=== PATIENT | female | born 1985 | race African-American/Black ===

== ENCOUNTER 2018-11-19 17:46 | Emergency (ER) | payer MEDICAID ==
[~2018-11-19] VITALS: Ht 162.6 cm; Wt 93.0 kg
[2018-11-19 22:30] VITALS: BP 115/72
[2018-11-19] MEDS ORDERED: IBUPROFEN 400MG TABLET PO ONE (22:30)
== END 2018-11-19 22:31 | disposition home or self-care (01) ==
LOC: ER 21:53
DX: S01.551A Open bite of lip, initial encounter (principal); X58.XXXA Exposure to other specified factors, initial encounter; Y93.89 Activity, other specified; Y92.89 Other specified places as the place of occurrence of the external cause; Y99.8 Other external cause status
CPT/HCPCS: 99282

== ENCOUNTER 2019-08-02 09:57 | Inpatient (IN) | payer MEDICAID ==
[~2019-08-02] VITALS: Ht 162.6 cm; Wt 113.4 kg
[2019-08-02] MEDS: DEXT 5%/LR + PITOCIN 20UNITS/L 1,000 ML IV SCH (09:59)
[2019-08-02] MEDS ORDERED: CARBOPROST TROMETHAMINE 250 MCG/ML AMPUL IM PRN (10:00)
[2019-08-02] MEDS ORDERED: METHYLERGONOVINE MALEATE 0.2 MG/ML IM PRN (10:00)
[2019-08-02] MEDS ORDERED: MISOPROSTOL 100MCG TABLET VG PRN (10:00)
[2019-08-02] MEDS ORDERED: PNV1TABL76 PO (10:01)
[2019-08-02 10:22] LABS: CLARITY URINE CLOUDY (CLEAR); COLOR URINE YELLOW (YELLOW); KETONES URINE NEGATIVE (NEGATIVE); LEUKOCYTE ESTERASE URINE TRACE (NEGATIVE); NITRITE URINE NEGATIVE (NEGATIVE); OCCULT BLOOD URINE NEGATIVE (NEGATIVE); PH URINE 5.5 (4.5-8.0); PROTEIN URINE TRACE (NEGATIVE); SPECIFIC GRAVITY URINE 1.025 (1.005-1.030); UROBILINOGEN URINE 0.2 E.U./dL (0.2-1.0)
[2019-08-02] MEDS: LACTATED RINGERS 1,000 ML IV SCH (10:28)
[2019-08-02 10:31] LABS: BASOPHILS % 0.6 % (0.0-2.0); EOSINOPHILS % 0.7 % (0.0-5.0); HEMATOCRIT. 40.2 % (36.0-48.0); HEMOGLOBIN. 13.2 g/dL (12.0-16.0); LYMPHOCYTES % 19.7 % (20.0-50.0); MEAN CORPUSCULAR HEMOGLOBIN 28.4 pg (28.0-32.0); MEAN CORPUSCULAR VOLUME 86.4 fL (81.0-99.0); MEAN PLATELET VOLUME 9.1 fl (7.4-10.4); MONOCYTES % 7.5 % (2.0-8.0); NEUTROPHILS % 71.5 % (40.0-76.0); PLATELET 347 x1000/uL (130-400); RED BLOOD CELL COUNT 4.66 mill/uL (4.2-5.4); RED CELL DISTRIBUTION WIDTH 15.8 % (11.6-14.6)
[2019-08-02 10:41] LABS: *AMPHETAMINES SCREEN URINE NEGATIVE (NEGATIVE); *BARBITURATES SCREEN URINE NEGATIVE (NEGATIVE)
[2019-08-02 10:42] LABS: *BENZODIAZEPINES SCREEN URINE NEGATIVE (NEGATIVE); *COCAINE SCREEN URINE NEGATIVE (NEGATIVE); CANNABINOID URINE SCREEN NEGATIVE (NEGATIVE); METHADONE URINE SCREEN NEGATIVE (NEGATIVE); OPIATES URINE SCREEN NEGATIVE (NEGATIVE); PHENCYCLIDINE URINE SCREEN NEGATIVE (NEGATIVE)
[2019-08-02 10:44] LABS: INR 0.9; PARTIAL THROMBOPLASTIN TIME 25.9 sec (23.4-31.0); PROTHROMBIN TIME 9.6 sec (9.6-11.0)
[2019-08-02] MEDS ORDERED: MORPHINE SULFATE/PF 1MG/ML 10ML AMP ONE (10:57)
[2019-08-02] MEDS ORDERED: METOCLOPRAMIDE HCL 10MG/2ML VIAL ONE (10:57)
[2019-08-02] MEDS ORDERED: FENTANYL CITRATE/PF 50MCG/ML 2ML VIAL ONE (10:57)
[2019-08-02] MEDS ORDERED: PHENYLEPHRINE HCL 10 MG/ML 1ML (IV VIAL) IV ONE (10:57)
[2019-08-02] MEDS ORDERED: EPHEDRINE SULFATE 50MG/ML VIAL ONE (10:57)
[2019-08-02] MEDS ORDERED: ONDANSETRON HCL 4MG/2ML INJ ONE (10:57)
[2019-08-02] MEDS ORDERED: GLYCOPYRROLATE 0.2 MG/ML 2ML VIAL ONE (10:57)
[2019-08-02] MEDS ORDERED: CEFAZOLIN SODIUM 1000MG/VIAL ONE (10:58)
[2019-08-02] MEDS ORDERED: OXYTOCIN 10 UNITS/ML 1ML ONE ×2 (10:58→12:21)
[2019-08-02] MEDS ORDERED: CITRIC ACID/SODIUM CITRATE SOLN 30ML UDC PO NR (11:00)
[2019-08-02] MEDS ORDERED: SODIUM CHLORIDE 0.9% 10ML VIAL ONE (11:05)
[2019-08-02 12:25] LABS: HEPATITIS B SURFACE ANTIGEN NEGATIVE
[2019-08-02] MEDS ORDERED: DIPHENHYDRAMINE 50MG/ML VIAL ONE (12:32)
[2019-08-02] MEDS ORDERED: KETOROLAC 60MG/2ML VIAL IM ONE (12:41)
[2019-08-02] MEDS ORDERED: HYDROCODONE/ACETAMINOPHEN 5/325MG TABLET PO PRN (13:00)
[2019-08-02] MEDS ORDERED: ONDANSETRON HCL 4MG/2ML INJ IV PRN (13:00)
[2019-08-02] MEDS ORDERED: LANOLIN OINT 7GM TUBE TOP PRN (13:00)
[2019-08-02] MEDS ORDERED: RHO(D) IMMUNE GLOBULIN 300 MCG/SYR IM PRN (13:00)
[2019-08-02] MEDS ORDERED: BISACODYL 10MG SUPP PR PRN (13:00)
[2019-08-02] MEDS ORDERED: DIPHENHYDRAMINE 50MG/ML VIAL IV PRN (14:15)
[2019-08-02] MEDS ORDERED: NALOXONE HCL 0.4 MG/ML 1ML VIAL IV PRN (14:15)
[2019-08-02] MEDS ORDERED: BUTORPHANOL TARTRATE 2 MG/ML VIAL IV PRN (14:15)
[2019-08-02] MEDS ORDERED: KETOROLAC 30MG/ML VIAL IV SCH ×2 (18:00)
[2019-08-02 20:03] VITALS: BP 107/43
[2019-08-03] VITALS: BP 98/46
[2019-08-03 04:00] VITALS: BP 101/50
[2019-08-03] MEDS: DEXT 5%/LR + PITOCIN 20UNITS/L 1,000 ML IV SCH (04:16)
[2019-08-03 06:40] LABS: BASOPHILS % 0.3 % (0.0-2.0); EOSINOPHILS % 0.9 % (0.0-5.0); HEMATOCRIT. 33.4 % (36.0-48.0); LYMPHOCYTES % 11.9 % (20.0-50.0); MEAN CORPUSCULAR HEMOGLOBIN 28.4 pg (28.0-32.0); MEAN CORPUSCULAR VOLUME 85.9 fL (81.0-99.0); MEAN PLATELET VOLUME 7.9 fl (7.4-10.4); MONOCYTES % 8.9 % (2.0-8.0); PLATELET 278 x1000/uL (130-400); RED BLOOD CELL COUNT 3.89 mill/uL (4.2-5.4); RED CELL DISTRIBUTION WIDTH 15.6 % (11.6-14.6)
[2019-08-03 08:30] VITALS: BP 93/48
[2019-08-03] MEDS: PRENATAL VIT/FE FUMARATE/FA TABLET PO SCH (13:57)
[2019-08-03] MEDS: ACETAMINOPHEN WITH CODEINE 300/30MG TABLET PO PRN ×2 (13:57→19:25)
[2019-08-03 20:00] VITALS: BP 97/56
[2019-08-03] MEDS: MAGNESIUM/ALUMINUM HYDROXIDE/SIMETHICONE 30ML UDC PO SCH ×2 (21:00→21:30)
[2019-08-04] VITALS: BP 93/46
[2019-08-04] MEDS: ACETAMINOPHEN WITH CODEINE 300/30MG TABLET PO PRN ×4 (00:17→21:30)
[2019-08-04] MEDS: DOCUSATE SODIUM 100MG CAPSULE PO SCH ×2 (00:22→21:12)
[2019-08-04] MEDS: SIMETHICONE 80MG TABLET CHEW PO SCH ×5 (00:22→21:12)
[2019-08-04] MEDS: NEOMYCIN/BACITRACIN/POLYMYXIN OINT 14GM TOP SCH ×3 (02:16→17:29)
[2019-08-04 04:00] VITALS: BP 101/61
[2019-08-04 07:31] VITALS: BP 111/67
[2019-08-04] MEDS: PRENATAL VIT/FE FUMARATE/FA TABLET PO SCH (08:47)
[2019-08-04] MEDS: MAGNESIUM/ALUMINUM HYDROXIDE/SIMETHICONE 30ML UDC PO SCH ×3 (09:00→17:26)
[2019-08-04] MEDS ORDERED: TETANUS, DIPHTHERIA, PERTUSSIS VAC/PF 0.5ML (>7YR OLD) IM ONE (10:00)
[2019-08-04 16:02] VITALS: BP 101/60
[2019-08-04 19:50] VITALS: BP 106/70
[2019-08-04 23:30] VITALS: BP 102/60
[2019-08-05 07:56] VITALS: BP 99/58
[2019-08-05] MEDS: MAGNESIUM/ALUMINUM HYDROXIDE/SIMETHICONE 30ML UDC PO SCH (09:00)
[2019-08-05] MEDS: SIMETHICONE 80MG TABLET CHEW PO SCH (09:00)
[2019-08-05] MEDS: ACETAMINOPHEN WITH CODEINE 300/30MG TABLET PO PRN (09:01)
[2019-08-05] MEDS: PRENATAL VIT/FE FUMARATE/FA TABLET PO SCH (09:02)
== END 2019-08-05 12:10 | disposition home or self-care (01) | DRG 540 ==
LOC: OBSVTOIN 09:57 → 8 EST LDRP 09:57 → 8EST 16:17
PROVIDERS: ADMIT Obstetrics & Gynecology; ATTEND Obstetrics & Gynecology
PROC: 10D00Z1 Extraction of Products of Conception, Low, Open Approach (ICD-10-PCS; principal; 2019-08-02)
DX: O34.211 Maternal care for low transverse scar from previous cesarean delivery (principal); Z37.0 Single live birth; Z3A.00 Weeks of gestation of pregnancy not specified
CPT/HCPCS: 36415; 80305; 81003; 85025; 86592; 86703; 86762; 86850; 86900; 87340; 88307; J0690; J1200; J1885; J2274; J2370; J2405; J2590; J2765; J3010; J3490